=== PATIENT | male | born 1990 | race American Indian/Alaskan Native ===

== ENCOUNTER 2017-07-31 05:53 | Emergency (ER) | payer SELFPAY ==
[2017-07-31 06:01] VITALS: BP 113/64
--- NOTE | 2017-07-31 07:11 | XRay Report ---
FINAL REPORT EXAM: XR NECK SOFT TISSUE HISTORY: Foreign body in throat. TECHNIQUE: AP and lateral views of the soft tissues of the neck were obtained. FINDINGS: The nasopharynx and hypopharynx appear normal. The subglottic airway appears normal. There is no evidence of radiopaque foreign body. The prevertebral soft tissues appear normal. The cervical spine appears normal. IMPRESSION: Normal exam. No evidence of radiopaque foreign body in the throat.
[2017-07-31] MEDS ORDERED: MOTRIN PO ONE (07:44)
[2017-07-31] MEDS ORDERED: BENADRYL PO ONE (07:44)
[2017-07-31] MEDS ORDERED: DECADRON IM ONE (07:46)
--- NOTE | 2017-07-31 08:23 | Emergency Department Report ---
ED ENT HPI - General Chief complaint: Sore Throat Stated complaint: THROAT PAIN Time Seen by Provider: 07/31/17 07:31 Source: patient Mode of arrival: Ambulatory Limitations: No Limitations - History of Present Illness Initial comments: There is a 26-year-old [place] male who presents for sore throat states he feels as though something is in his throat sore throat with difficulty swallowing woke up with denies smoking denies foreign object denies asthma denies bronchitis denies fevers chills no recent URI. Denies dysphagia this time MD complaint: sore throat Onset/Timin -: hour(s) Location: throat Severity: moderate Severity scale (0 -10): 4 Consistency: constant Improves with: none Worsens with: swallowing Associated Symptoms: sore throat - Related Data Previous Rx's Medication Instructions Recorded Last Taken Type Benzocaine/Menth/Cetylpyrd 8 each MM Q4HR PRN #3 packet 07/31/17 Unknown Rx [Cepacol X Strength] Dexamethasone [Decadron] 4 mg PO Q12H #4 tablet 07/31/17 Unknown Rx Ibuprofen 800 mg PO TID PRN #30 tablet 07/31/17 Unknown Rx diphenhydrAMINE [Benadryl CAP] 25 mg PO Q8HR PRN #30 capsule 07/31/17 Unknown Rx Allergies Allergy/AdvReac Type Severity Reaction Status Date / Time No Known Allergies Allergy Unverified 07/31/17 06:47 ED Dental HPI - General Chief complaint: Sore Throat Stated complaint: THROAT PAIN Time Seen by Provider: 07/31/17 07:31 Source: patient Mode of arrival: Ambulatory Limitations: No Limitations - Related Data Previous Rx's Medication Instructions Recorded Last Taken Type Benzocaine/Menth/Cetylpyrd 8 each MM Q4HR PRN #3 packet 07/31/17 Unknown Rx [Cepacol X Strength] Dexamethasone [Decadron] 4 mg PO Q12H #4 tablet 07/31/17 Unknown Rx Ibuprofen 800 mg PO TID PRN #30 tablet 07/31/17 Unknown Rx diphenhydrAMINE [Benadryl CAP] 25 mg PO Q8HR PRN #30 capsule 07/31/17 Unknown Rx Allergies Allergy/AdvReac Type Severity Reaction Status Date / Time No Known Allergies Allergy Unverified 07/31/17 06:47 ED Review of Systems ROS: Stated complaint: THROAT PAIN Other details as noted in HPI Constitutional: denies: chills, fever Eyes: denies: eye pain, eye discharge, vision change ENT: throat pain Respiratory: denies: cough, shortness of breath, wheezing Cardiovascular: denies: chest pain, palpitations Endocrine: no symptoms reported Gastrointestinal: denies: abdominal pain, nausea, diarrhea Genitourinary: denies: urgency, dysuria Musculoskeletal: denies: back pain, joint swelling, arthralgia Skin: denies: rash, lesions Neurological: denies: headache, weakness, paresthesias Psychiatric: denies: anxiety, depression Hematological/Lymphatic: denies: easy bleeding, easy bruising ED Past Medical Hx - Past Medical History Previous Medical History?: No - Surgical History Past Surgical History?: No - Social History Smoking Status: Never Smoker Substance Use Type: None - Medications Home Medications: Home Medications Medication Instructions Recorded Confirmed Last Taken Type Benzocaine/Menth/Cetylpyrd 8 each MM Q4HR PRN #3 packet 07/31/17 Unknown Rx [Cepacol X Strength] Dexamethasone [Decadron] 4 mg PO Q12H #4 tablet 07/31/17 Unknown Rx Ibuprofen 800 mg PO TID PRN #30 tablet 07/31/17 Unknown Rx diphenhydrAMINE [Benadryl CAP] 25 mg PO Q8HR PRN #30 capsule 07/31/17 Unknown Rx ED Physical Exam - General Limitations: No Limitations General appearance: alert, in no apparent distress - Head Head exam: Present: atraumatic, normocephalic - Eye Eye exam: Present: normal appearance - ENT ENT exam: Present: normal exam, mucous membranes moist, TM's normal bilaterally , normal external ear exam - Expanded ENT Exam Expanded Ear exam: Present: auricular hematoma Mouth exam: Present: normal external inspection, muffled voice, tongue normal. Absent: trismus Teeth exam: Present: normal inspection Throat exam: Positive: normal inspection, tonsillar erythema, tonsillomegaly, other (uvula midline mod tonsilarmegaly no exudate no stridor no wheezing no spasm ). Negative: tonsillar exudate, R peritonsillar mass, L peritonsillar mass - Neck Neck exam: Present: normal inspection, full ROM. Absent: tenderness, lymphadenopathy, thyromegaly - Respiratory Respiratory exam: Present: normal lung sounds bilaterally. Absent: respiratory distress, wheezes, stridor, chest wall tenderness - Cardiovascular Cardiovascular Exam: Present: regular rate, normal rhythm, normal heart sounds. Absent: systolic murmur, diastolic murmur, rubs, gallop - GI/Abdominal GI/Abdominal exam: Present: soft, normal bowel sounds - Rectal Rectal exam: Present: deferred - Extremities Exam Extremities exam: Present: normal inspection - Back Exam Back exam: Present: normal inspection - Neurological Exam Neurological exam: Present: alert, oriented X3, CN II-XII intact, normal gait, reflexes normal - Psychiatric Psychiatric exam: Present: normal affect, normal mood - Skin Skin exam: Present: warm, dry, intact, normal color. Absent: rash ED Course Vital Signs 07/31/17 05:55 Temperature 98.2 F Pulse Rate 75 Respiratory 18 Rate Blood Pressure 113/64 O2 Sat by Pulse 96 Oximetry ED Medical Decision Making - Radiology Data Radiology results: report reviewed, image reviewed normal soft tissue neck - Medical Decision Making Soft tissue neck x-ray normal no foreign body ENT exam moderate megaly uvula midline erythema edema airway is patent uvula midline no stridor good air movement patient given Decadron and ibuprofen and Benadryl in ED there is no fever chills reported no nausea vomiting no wheezing no history of asthma or bronchitis no ingestion of foreign body patient denies substancesmoking rapid strep is pending not likely bacterial cause plan DC to home Decadron by mouth 2 days ibuprofen when necessary pain sooner call throat lozenges follow PCP in 2 -3 days return to ED if symptoms worsen patient patient verbalizes understanding and agreement with discharge plan DC to home in stable condition at this time. Critical care attestation.: If time is entered above; I have spent that time in minutes in the direct care of this critically ill patient, excluding procedure time. ED Disposition Clinical Impression: Pharyngitis Qualifiers: Pharyngitis/tonsillitis etiology: unspecified etiology Qualified Code(s): J02.9 - Acute pharyngitis, unspecified Disposition: DC-01 TO HOME OR SELFCARE Is pt being admited?: No Does the pt Need Aspirin: No Condition: Good Instructions: Pharyngitis (ED) Prescriptions: Benzocaine/Menth/Cetylpyrd [Cepacol X Strength] 8 each MM Q4HR PRN #3 packet PRN Reason: pain Dexamethasone [Decadron] 4 mg PO Q12H #4 tablet diphenhydrAMINE [Benadryl CAP] 25 mg PO Q8HR PRN #30 capsule PRN Reason: allergies Ibuprofen 800 mg PO TID PRN #30 tablet PRN Reason: pain Referrals: PRIMARY CARE, [Primary Care Provider] - 3-5 Days Forms: Work/School Release Form(ED) Time of Disposition: 08:29
== END 2017-07-31 08:45 | disposition home or self-care (01) ==
LOC: ED 05:53
DX: J02.9 Acute pharyngitis, unspecified (principal)
CPT/HCPCS: 70360; 87116; 87430; 96372; 99283; J1100